=== PATIENT | male | born 1980 | race Caucasian/White ===

== ENCOUNTER 2024-02-26 06:59 | Emergency (ER) | payer OTHER, SELFPAY ==
[2024-02-26 07:01] VITALS: BP 127/84; PULSE 73; TEMP 36.4; O2SAT 98; O2SAT 99; BMI 19.9
[2024-02-26 07:10] VITALS: PULSE 74; O2SAT 97
--- NOTE | 2024-02-26 07:18 | XR_ITS ---
The [address] [address] Patient Name: SIGIFREDO YOST MRN: [id number] date: 1980 Sex: M Assigned Patient Location: ER Current Patient Location: ED.MAIN Accession/Order Number: [id number] Exam Date: 02/26/2024 08:04 Report Date: 02/26/2024 08:23 At the request of: KELI DO Procedure: XR chest 1V EXAM: XR chest 1V HISTORY: . cough . COMPARISON: None. TECHNIQUE: Single view of the chest FINDINGS: Heart and vascularity are unremarkable. Lungs are free of focal infiltrates. EKG leads overlie the chest. Grossly no acute bony abnormality is appreciated. XR/XR chest 1V IMPRESSION: No acute heart or lung disease identified. Electronically authenticated by: CHIKA MAXWELL Date: 02/26/2024 08:23
--- NOTE | 2024-02-26 07:20 | ED_ITS ---
HPI - SOB/Dyspnea General Chief Complaint: Shortness of Breath/Dyspnea Stated Complaint: URTI COMPLAINTS/EAR PAIN Time Seen by Provider: 02/26/24 07:14 History of Present Illness HPI Narrative: 43-year-old male presents for cough and shortness of breath of 8 days duration. He has been coughing up thick yellow phlegm. He is a smoker. He has used inhalers but none for about 4 years. He has not had fever or hemoptysis. Related Data Previous Rx's ?Medication ?Instructions ?Recorded albuterol sulfate 90 mcg/actuation 2 inh inhalation Q4H PRN shortness 02/26/24 aerosol inhaler of breath or wheezing #8.5 grams azithromycin 250 mg tablet See Rx Instructions PO .COMPLEX #6 02/26/24 (Zithromax Z-Reggie) tabs prednisone 10 mg tablet See Rx Instructions .Route 02/26/24 .COMPLEX #30 tabs Allergies Allergy/AdvReac Type Severity Reaction Status Date / Time No Known Drug Allergies Allergy Verified 02/26/24 07:08 Review of Systems ROS Narrative A ten point review of systems is negative except as noted above. [facility] Medical History (Updated 02/26/24 @ 08:31 by Thong Masters MD) No pertinent past medical history ?Z78.9 - Other specified health status (ICD-10) Surgical History (Updated 02/26/24 @ 07:45 by Chika Velazco) No pertinent past surgical history ?Z78.9 - Other specified health status (ICD-10) Social History Little interest or pleasure in doing things: not at all Feeling down, depressed, or hopeless: not at all Exam Narrative Exam Narrative: Nurses note and vital signs reviewed and patient is not hypoxic. General: The patient appears in no apparent distress. Patient is resting comfortably on cart. Skin: Warm, dry, no pallor noted. There is no rash noted. Head: Normocephalic, atraumatic, EOMI. PERRL Ears, Nose, Mouth, and Throat: oral mucosa is moist. Nares patent. Cardiovascular: Regular Rate and Rhythm Respiratory: Bilateral rhonchi present, more prominent on the left. Back: non-tender GI: Soft and nontender Musculoskeletal: The patient has no evidence of calf tenderness, no pitting edema, symmetrical pulses noted bilaterally Neurological: A&O, normal speech Psychiatric: Cooperative Constitutional Vital Signs, click to edit/add: Last Vital Signs Temp 97.6 F 02/26/24 07:01 Pulse 73 02/26/24 07:01 Resp 20 02/26/24 07:01 BP 127/84 02/26/24 07:01 Pulse Ox 97 02/26/24 07:28 O2 Del Method Room Air 02/26/24 07:28 Course Vital Signs Vital signs: Vital Signs Temperature 97.6 F 02/26/24 07:01 Pulse Rate 73 02/26/24 07:01 Respiratory Rate 20 02/26/24 07:01 Blood Pressure 127/84 02/26/24 07:01 Pulse Oximetry 98 02/26/24 07:01 Oxygen Delivery Method Room Air 02/26/24 07:01 Temperature 97.6 F 02/26/24 07:01 Pulse Rate 73 02/26/24 07:01 Respiratory Rate 20 02/26/24 07:01 Blood Pressure 127/84 02/26/24 07:01 Pulse Oximetry 97 02/26/24 07:28 Oxygen Delivery Method Room Air 02/26/24 07:28 MDM - SOB/Dyspnea MDM Narrative Medical decision making narrative: Chest x-ray is negative and he feels improved after aerosol treatment. He took a home COVID test and does not feel that he needs another 1. He was offered an influenza test but does not feel he needs it. He is discharged home on prednisone, albuterol, and Zithromax. Treatment diagnosis and follow-up were discussed with the patient. Differential Diagnosis Differential diagnosis: Likely acute exacerbation of chronic obstructive airways disease, community acquired pneumonia, asthma with exacerbation and other (COVID, pneumonia) Imaging Data Chest x-ray: Radiologist's impression: ITS Impressions Chest X-Ray 02/26/24 07:18 IMPRESSION: No acute heart or lung disease identified. Electronically authenticated by: CHIKA MAXWELL Date: 02/26/2024 08:23 ECG Data Attestation: I personally reviewed and interpreted this ECG as follows: (EKG on my interpretation shows normal sinus rhythm with rate of 69 and no acute change.) Discharge Plan Discharge Chief Complaint: Shortness of Breath/Dyspnea Clinical Impression: Upper respiratory infection Patient Disposition: Home, Self-Care Time of Disposition Decision: 08:31 Condition: Good Mode of Transportation: Private Vehicle Prescriptions / Home Meds: New albuterol sulfate 90 mcg/actuation HFA aerosol inhaler 2 inh inhalation Q4H PRN (Reason: shortness of breath or wheezing) Qty: 8.5 0RF prednisone 10 mg tablet See Rx Instructions .ROUTE .COMPLEX Qty: 30 0RF Rx Instructions: 4 by mouth daily for three days then 3 by mouth daily for three days then 2 by mouth daily for three days then 1 by mouth daily for three days azithromycin [Zithromax Z-Reggie] 250 mg tablet See Rx Instructions .ROUTE .COMPLEX Qty: 6 0RF Rx Instructions: For 250 mg dose pack: take 500 mg today (day 1), then 250 mg for 4 days (days 2-5) Print Language: Yoruba Instructions: Upper Respiratory Infection (ED) Referrals: MALINA HOLT [Nurse Practitioner] - 1 week
--- NOTE | 2024-02-26 07:22 | ECG_ITS ---
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
[2024-02-26] MEDS: ALBUTEROL SULFATE 2.5 MG/3 ML VIAL NEB IH (07:27)
[2024-02-26 07:28] VITALS: O2SAT 97
[2024-02-26 07:30] VITALS: PULSE 78; O2SAT 100
[2024-02-26 08:38] VITALS: PULSE 78; O2SAT 98
== END 2024-02-26 08:39 | disposition home or self-care (01) ==
PROVIDERS: Emergency Provider Emergency Medicine
DX: J06.9 Acute upper respiratory infection, unspecified (principal); F17.200 Nicotine dependence, unspecified, uncomplicated
CPT/HCPCS: 71045; 93005; 94640; 99284